=== PATIENT | female | born 1960 | race Caucasian/White ===

== ENCOUNTER → 2016-12-29 | Outpatient (CLI) | payer BC ==
--- NOTE | 2016-12-30 12:13 | RAD ---
DATE: 12/29/16 EXAM: DIGITAL SCREEN BILAT W/CAD HISTORY: Routine screening COMPARISON: 11/07/15 This study was interpreted with the benefit of Computerized Aided Detection (CAD). TECHNIQUE: Routine CC and MLO views of both breasts are obtained. FINDINGS: The breast tissue density is [B ] . Scattered fibroglandular densities are seen bilaterally. There are no dominant suspicious masses, suspicious microcalcifications or evidence of architectural distortion. Stable benign-appearing calcification in the right breast and nodularity in the left breast appear unchanged. Skin and nipples are intact IMPRESSION: Benign findings BI-RADS CATEGORY: 2 BENIGN FINDING(S) RECOMMENDED FOLLOW-UP: 12M 12 MONTH FOLLOW-UP PQRS compliance statement: Patient information was entered into a reminder system with a target due date for the next mammogram. Mammography is a sensitive method for finding small breast cancers, but it does not detect them all and is not a substitute for careful clinical examination. A negative mammogram does not negate a clinically suspicious finding and should not result in delay in biopsying a clinically suspicious abnormality. "Our facility is accredited by the [employer] Mammography [employer]."
== END | disposition home or self-care (01) ==
LOC: MAMMO 17:05
PROVIDERS: ATTEND Family Medicine
DX: Z12.31 Encounter for screening mammogram for malignant neoplasm of breast (principal)
CPT/HCPCS: G0202; 77067

== ENCOUNTER → 2017-02-17 | Outpatient (CLI) | payer BC ==
--- NOTE | 2017-02-17 17:11 | KCIC ---
Examination: Thyroid ultrasound. HISTORY History of followup thyroid nodule, hypothyroidism COMPARISON None available. Findings : The right lobe of thyroid gland measures 2.8 x 0.8 x 1.3 centimeters. The left lobe of thyroid gland measures 3.2 x 1.0 x 1.4 centimeters . In the left lobe of thyroid gland, there is a 7 millimeter nodule containing coarse calcification. In the lower pole of the left lower thyroid gland, there is a 5 millimeter nodule containing tiny calcification. The isthmus measures 1.6 millimeters in AP dimension. IMPRESSION 2 small subcentimeter nodules identified in the left lobe of thyroid gland. Followup examination is recommended to document stability. Electronically signed by: Ollie Rhodes (Feb 17, 2017 17:10:16)
== END | disposition home or self-care (01) ==
LOC: KCIC US 15:36
PROVIDERS: ATTEND Family Medicine
DX: E04.1 Nontoxic single thyroid nodule (principal); E03.9 Hypothyroidism, unspecified
CPT/HCPCS: 76536

== ENCOUNTER → 2017-11-12 | Outpatient (CLI) | payer BC ==
--- NOTE | 2017-11-12 16:24 | KCIC ---
THYROID ULTRASOUND History: Thyroid nodule follow-up, hypothyroidism Comparison: February 17, 2017 Findings: Multiple sonographic images of the thyroid gland are submitted. Right lobe measured 3.5 x 0.7 x 1.5 cm. Left lobe measured 3.8 x 0.8 x 1.5 cm. Isthmus measured 0.1 cm in thickness. There is a complex solid nodule of the superior left gland with associated calcification up to 0.8 x 0.6 x 0.5 cm. There is some associated mild internal vascularity on color Doppler imaging. There is also complex heterogeneous nodule of the inferior left gland up to 0.6 x 0.4 x 0.5 cm. There is some very minimal internal vascularity on color Doppler imaging These have not convincingly changed in size compared with the previous exam. No new thyroid nodularity is identified. Impression: 1. Left thyroid nodules are stable. Superior focus of the left gland is associated with calcification. Electronically signed by: George Freeman MD (11/12/2017 4:20 PM) [facility]-KCIC1
== END | disposition home or self-care (01) ==
LOC: KCIC US 15:43
PROVIDERS: ATTEND Family Medicine
DX: E04.2 Nontoxic multinodular goiter (principal); E03.9 Hypothyroidism, unspecified
CPT/HCPCS: 76536

== ENCOUNTER → 2019-03-25 | Outpatient (CLI) | payer BC ==
--- NOTE | 2019-03-27 09:50 | RAD ---
DATE: 03/25/2019 EXAM: MAMMO IRIS SCREENING BILATERAL HISTORY: Routine screening COMPARISON: 01/25/2018 This study was interpreted with the benefit of Computerized Aided Detection (CAD). Breast Density: SCATTERED The breast parenchyma shows scattered fibroglandular densities. Breast parenchyma level B. FINDINGS: 2-D and 3-D tomosynthesis imaging was performed in CC and MLO projections. No new or enlarging breast densities are seen. Benign calcifications are present. No suspicious microcalcifications have developed. IMPRESSION: There is no mammographic evidence of malignancy in either breast. BI-RADS CATEGORY: 2 BENIGN FINDING(S) RECOMMENDED FOLLOW-UP: 12M 12 MONTH FOLLOW-UP PQRS compliance statement: Patient information was entered into a reminder system with a target due date for the next mammogram. Mammography is a sensitive method for finding small breast cancers, but it does not detect them all and is not a substitute for careful clinical examination. A negative mammogram does not negate a clinically suspicious finding and should not result in delay in biopsying a clinically suspicious abnormality. "Our facility is accredited by the [employer] Mammography [employer]."
== END | disposition home or self-care (01) ==
LOC: MAMMO 09:51
PROVIDERS: ATTEND Family Medicine
DX: Z12.31 Encounter for screening mammogram for malignant neoplasm of breast (principal)
CPT/HCPCS: 77063; 77067

== ENCOUNTER → 2019-05-19 | Day surgery (SDC) | payer BC ==
[~2019-05-19] MED LIST: HYDROmorphone 2 MG/ML VIAL IV PRN; IV RINGERS,LACTATED 1000ML 1,000 ML IV SCH; LEVO50TA5 PO; LIDOCAINE 2% PF 5 ML VIAL. ONE; MORPHINE SULFATE 2 MG/ML VIAL. IV PRN; ONDANSETRON PF 4 MG/2 ML VIAL. IV PRN; PROCHLORPERAZINE 10 MG/2 ML VIAL. IV PRN; PROPOFOL 40 ML IV ONE; fentaNYL PF VIAL 100 MCG/2 ML VIAL IV PRN
--- NOTE | 2019-05-19 09:29 | CONS ---
DATE OF CONSULTATION: 05/19/2019 REFERRING PHYSICIAN: Dr. Angie Christopher. REASON FOR CONSULTATION: Colorectal screening. HISTORY OF PRESENT ILLNESS: A 58-year-old female whose past medical history is significant for hysterectomy and hypothyroidism, seen for screening colon exam. Last exam was 10 years ago, which was unrevealing for polyps or malignancy. Bowel habits are regular without diarrhea or constipation. There has been no melena and/or hematochezia and family history likewise unrevealing for colon cancer, colon polyps, but is positive for diverticulitis with resection was apparent. She denies additional complaints. PAST MEDICAL HISTORY: Hypothyroidism, status post hysterectomy. ALLERGIES: None. MEDICATIONS: Include levothyroxine 50 mcg daily. FAMILY HISTORY AND SOCIAL HISTORY: Significant for high blood pressure with her mother and her grandmother as well as a heart attack with a grandfather. She is a nonsmoker, social drinker. REVIEW OF SYSTEMS: HEENT: There is no decrease in her visual acuity issues. CARDIAC: No history of hypertension, palpitations, syncope. PULMONARY: No shortness breath, productive cough, asthma. RENAL: No dysuria, frequency, hematuria. NEUROLOGIC: No stroke, migraine, neuropathy. PSYCHIATRIC: No mood swings, depression, insomnia. HEMATOLOGIC: No bleeding, bruising, coagulopathy. ENDOCRINE: There is a history of hypothyroidism. MUSCULOSKELETAL: No osteoarthrosis, arthralgias, myalgias. GASTROINTESTINAL: See history present illness. PHYSICAL EXAMINATION: GENERAL: Reveals well-nourished, well-developed female, who is alert and cooperative, in no acute distress. VITAL SIGNS: Temperature is 97.8, pulse 86, respirations 20. HEENT: Normocephalic, atraumatic head. Pupils and extraocular muscles are not tested. Sclerae anicteric. NECK: Supple. LUNGS: Clear. CARDIOVASCULAR: Reveals an S1, S2 without S3, S4 or appreciable murmur. ABDOMEN: Reveals soft abdomen, normal bowel sounds, without appreciable hepatosplenomegaly, with infraumbilical hysterectomy incision. EXTREMITIES: No cyanosis, clubbing, edema. IMPRESSION: Colorectal screening is warranted at this time. Risks and benefits were discussed with the patient including risk of hemorrhage and perforation. She is willing to proceed. I thank Angie Christopher for allowing us to consult and participate in this patient's care. DIANNE MOORE MD DR: HAYLEE/hiram JOB#: [id number] / [id number] ANGIE Lieberman MD
[2019-05-19 09:50] VITALS: BP 136/70
== END ==
LOC: ENDOS 08:02
PROVIDERS: ATTEND Internal Medicine Gastroenterology
DX: Z12.11 Encounter for screening for malignant neoplasm of colon (principal); K64.0 First degree hemorrhoids; E03.9 Hypothyroidism, unspecified; Z79.899 Other long term (current) drug therapy; Z90.710 Acquired absence of both cervix and uterus
CPT/HCPCS: 45378; J2001; J2704

== ENCOUNTER → 2019-08-11 | Outpatient (CLI) | payer BC ==
[2019-05-19 09:50] VITALS: BP 136/70
[~2019-08-11] MED LIST changes: -HYDROmorphone 2 MG/ML VIAL IV PRN; -IV RINGERS,LACTATED 1000ML 1,000 ML IV SCH; -LIDOCAINE 2% PF 5 ML VIAL. ONE; -MORPHINE SULFATE 2 MG/ML VIAL. IV PRN; -ONDANSETRON PF 4 MG/2 ML VIAL. IV PRN; -PROCHLORPERAZINE 10 MG/2 ML VIAL. IV PRN; -PROPOFOL 40 ML IV ONE; -fentaNYL PF VIAL 100 MCG/2 ML VIAL IV PRN
--- NOTE | 2019-08-11 09:56 | CARD ---
MR#: [id number] Date of Study: 08/11/2019 Ordering Physician: BEKAH CHAU, Referring Physician: BEKAH CHAU Tech: Sharon Newton RDCS APPROVED REPORT EXAM: Two-dimensional and M-mode echocardiogram with Doppler and color Doppler. Other Information Quality : GoodHR: 76bpm Rhythm : NSR INDICATION Atrial Fibrillation 2D DIMENSIONS RVDd2.4 (2.9-3.5cm)Left Atrium(2D)2.8 (1.6-4.0cm) IVSd1.0 (0.7-1.1cm)Aortic Root(2D)2.9 (2.0-3.7cm) LVDd3.8 (3.9-5.9cm)LVOT Diameter1.8 (1.8-2.4cm) PWd1.0 (0.7-1.1cm)LVDs2.8 (2.5-4.0cm) FS (%) 28.1 %SV35.1 ml LVEF(%)55.1 (>50%) Aortic Valve AoV Peak Connor.150.8cm/sAoV VTI31.6cm AO Peak GR.9.1mmHgLVOT Peak Connor.134.6cm/s AO Mean GR.5mmHgAVA (VMAX)2.28cm2 MADDI (VTI)2.30cm2 Mitral Valve MV E Jcyrzkau479.8cm/sMV DECEL ILNS816vl MV A Lvnlzkcr10.6cm/sE/A Ratio1.4 Pulmonary Valve PV Peak Gyxhykaa458.5cm/s LEFT VENTRICLE The left ventricle is normal size. There is normal left ventricular wall thickness. The left ventricu lar systolic function is normal. The Ejection Fraction is 55-60%. There is normal LV segmental wall m otion. The left ventricular diastolic function and filling is normal for age. RIGHT VENTRICLE The right ventricle is normal size. There is normal right ventricular wall thickness. The right ventr icular systolic function is normal. ATRIA The left atrium size is normal. The right atrium size is normal. The interatrial septum is intact wit h no evidence for an atrial septal defect or patent foramen ovale as noted on 2-D or Doppler imaging. AORTIC VALVE The aortic valve is normal in structure and function. The aortic valve is trileaflet. Doppler and Col or Flow revealed no significant aortic regurgitation. There is no significant aortic valvular stenosi s. MITRAL VALVE The mitral valve is normal in structure and function. There is no evidence of mitral valve prolapse. There is no mitral valve stenosis. Doppler and Color Flow revealed no mitral valve regurgitation note d. TRICUSPID VALVE The tricuspid valve is normal in structure and function. Doppler and Color Flow revealed no tricuspid valve regurgitation noted. There is no tricuspid valve prolapse or vegetation. There is no tricuspid valve stenosis. PULMONIC VALVE The pulmonary valve is normal in structure and function. Doppler and Color Flow revealed no pulmonic valvular regurgitation. There is no pulmonic valvular stenosis. GREAT VESSELS The aortic root is normal in size. The ascending aorta is normal in size. The IVC was not visualized. PERICARDIAL EFFUSION There is no evidence of significant pericardial effusion. Critical Notification Critical Value: No <Conclusion> The left ventricular systolic function is normal. The Ejection Fraction is 55-60%. There is normal LV segmental wall motion. There is no evidence of significant pericardial effusion. Signed by : Bekah Chau, Electronically Approved : 08/11/2019 09:55:46
--- NOTE | 2019-08-11 14:04 | RAD ---
MR#: [id number] Date of Study: 08/11/2019 Ordering Physician: BEKAH HUDSON Referring Physician: AAMIR RENE Tech: RT Neal (Elle) (N) APPROVED REPORT Test Type: Exercise Stress Nurse/Tech: Yung FROST Test Indications: CP, Abnormal EKG Cardiac History: None, See EMR Medications: ASA 81mg daily, See EMR Medical History: See EMR Resting ECG: SR Resting Heart Rate: 83 bpm Resting Blood Pressure: 151/62mmHg Pretest Chest Pain: No chest pain Nurse/Tech Notes Lungs CTA, Heart tones regular. Consent: The procedure was explained to the patient in lay terms. Informed consent was witnessed. Jae eout was entered into [employer]. History and Stress Test performed by RT Vik (Elle) (N) Stress Symptoms No chest pain or symptoms. POST EXERCISE Reason for Termination: Reached target heart rate Target HR: Yes Max HR: 143 bpm 89% of Maximum Predicted HR: 160 bpm Exercise duration: 8:00 min:sec, 3 Stage Exercise capacity: 10.0METs Max Blood Pressure: 170/78mmHg Blood Pressure response to exercise: Normal blood pressure response during stress. Heart Rate response to exercise: WNL Chest Pain: No. Arrhythmia: No. ST Change: No. INTERPRETATION Stress EKG Conclusion: The resting EKG shows a sinus rhythm with minimal nonspecific ST segment maguire es. The stress EKG shows no significant changes from baseline. No EKG evidence of stressed induced ischemia. Imaging Protocol IMAGE PROTOCOL: Rest Tc-99m/stress Tc-99m 1 day Rest: Stress: Viability: Radiopharm.Tc99m CkgwcodwvNz18n Sestamibi Zenf67jTy 31.6mCi Duration 15min. 15min. Img Date 08/11/2019 08/11/2019 Inj-Img Drrb09pch. 60min. Rest Admin Site:IV - Left AntecubitalAdministrator:RT Neal (R)(N) Stress Admin Site: IV - Left AntecubitalAdministrator: RT Krysta Chery)(N) STRESS DATA End Diast. Vol.45.0mlLVEDV index BSA26.0ml End Syst. Vol.2.0mlLVESV index BSA1.0ml Myocardial Mass82.0gEject. Ahoqvcaa09.0% Stress Scores Regional WT0.00Summed WT0.00 Regional WM0.00Summed WM0.00 LV Perfusion The stress scans show no significant defects. The rest scans show no significant defects. Nuclear imaging shows no reversible ischemia or infarct. Wall Motion Left ventricular systolic function is normal with no regional wall motion abnormalities and an ejecti on fraction of greater than 70%. LV Perf. Quant 17 Seg. SSS0.00 17 Seg. SRS0.00 17 Seg. SDS0.00 Stress Defect Extent (% LAD)0.00Rest Defect Extent (% LAD)0.00Rev. Defect Extent (% LAD)0.00 Stress Defect Extent (% LCX) 0.00Rest Defect Extent (% LCX)0.00Rev. Defect Extent (% LCX)0.00 Stress Defect Extent (% RCA)0.00Rest Defect Extent (% RCA)0.00Rev. Defect Extent (% RCA)0.00 Stress Defect Extent (% MAAME)0.00Rest Defect Extent (% MAAME)0.00Rev. Defect Extent (% MAAME)0.00 Conclusion 1. Good exercise tolerance. 2. No chest pain with exertion. 3. No EKG evidence of stress-induced ischemia. 4. Nuclear imaging shows no reversible ischemia or infarct. 5. Normal left ventricular systolic function with an ejection fraction of greater than 70%. 6. Low risk treadmill nuclear stress test. Signed by : Boy Caballero MD Electronically Approved : 08/11/2019 14:04:25
== END | disposition home or self-care (01) ==
LOC: ECHO 08:50
PROVIDERS: ATTEND Internal Medicine Cardiovascular Disease
DX: R07.9 Chest pain, unspecified (principal); R94.39 Abnormal result of other cardiovascular function study; I48.91 Unspecified atrial fibrillation
CPT/HCPCS: 78452; 93017; 93306; A9500

== ENCOUNTER → 2020-05-08 | Outpatient (CLI) | payer BC ==
[2019-05-19 09:50] VITALS: BP 136/70
--- NOTE | 2020-05-08 18:41 | KCIC ---
Bilateral digital screening mammograms with 3-D tomosynthesis: Reason for examination: Routine screening. Comparison is made to previous studies dated back to 11/07/2015. Bilateral mammograms in CC and oblique projections were obtained with 2-D imaging and 3-D tomosynthesis imaging on a Siemens Inspiration unit and reviewed on the workstation. Interpretation was made with the benefit of CAD. The skin and nipples show no abnormalities. No abnormal axillary lymph nodes are seen. The breast parenchyma shows scattered fatty and fibroglandular density. (Breast density: Category B.) There are small nodular parenchymal density seen centrally in the left breast which are stable. There are no new dominant masses, suspicious calcifications or architectural distortion. A few benign calcifications are seen. Impression: No evidence of malignancy. Recommend routine screening. BI-RAD Category 2: Benign. "Our facility is accredited by the [employer]ammography [employer]." This patient's information has been entered into a reminder system for the patient to be notified with the results of her examination and a target date for the next mammogram. Electronically signed by: Misa Baird MD (05/08/2020 6:38 PM) [id number]
== END ==
LOC: KCIC MAMMO 10:29
PROVIDERS: ATTEND Family Medicine
DX: Z12.31 Encounter for screening mammogram for malignant neoplasm of breast (principal)
CPT/HCPCS: 77063; 77067

== ENCOUNTER → 2020-08-20 | Outpatient (CLI) | payer BC ==
[2019-05-19 09:50] VITALS: BP 136/70
--- NOTE | 2020-08-20 16:17 | KCIC ---
Thyroid ultrasound compared to similar exam dated November 122016 for thyroid nodules. TECHNIQUE AND FINDINGS: Real-time grayscale and color Doppler evaluation of the thyroid gland is performed. Gland echotexture is heterogeneous diffusely. There is normal color flow throughout the gland. The right lobe measures 4.7 x 1.2 x 1.1 cm and the left measures 4.0 x 1.4 x 1.1 cm. The isthmus measures 1.6 mm in thickness. In the superior portion of the left thyroid lobe there is a circumscribed hypoechoic nodule measuring 0.7 x 0.5 x 0.6 cm, with coarse central calcification. Nodules wider than it is tall. At the inferior pole is a second hypoechoic nodule measuring 0.5 x 0.2 x 0.4 cm. This nodule also contains coarse internal calcifications, and is wider than tall. Margins are ill-defined. No suspicious adenopathy is seen. IMPRESSION: 1. Stable appearance of the thyroid gland with 2 unchanged subcentimeter nodules on the left. Electronically signed by: Endy Jhaveri MD (08/20/2020 4:14 PM) [id number]
== END | disposition home or self-care (01) ==
LOC: KCIC US 08:36
PROVIDERS: ATTEND Family Medicine
DX: E04.1 Nontoxic single thyroid nodule (principal); E03.9 Hypothyroidism, unspecified
CPT/HCPCS: 76536

== ENCOUNTER → 2020-08-23 | Outpatient (CLI) | payer BC ==
[2019-05-19 09:50] VITALS: BP 136/70
[~2020-08-23] MED LIST changes: +ASPI-630 PO; +CETI10TA74 PO; +FAMO20TA5 PO; +HYDR-3164 PO; +LYSI500T8 PO
== END | disposition home or self-care (01) ==
LOC: LAB 14:12
PROVIDERS: ATTEND Surgery
DX: Z01.812 Encounter for preprocedural laboratory examination (principal); L72.9 Follicular cyst of the skin and subcutaneous tissue, unspecified; Z20.828 Contact with and (suspected) exposure to other viral communicable diseases
CPT/HCPCS: U0003-CS

== ENCOUNTER 2020-08-26 09:14 | Day surgery (SDC) | payer BC ==
[~2020-08-26] VITALS: Ht 168.9 cm; Wt 70.5 kg
[~2020-08-26 09:14] MED LIST changes: -HYDR-3164 PO; +HYDROmorphone 2 MG/ML VIAL IV PRN; +IV RINGERS,LACTATED 1000ML 1,000 ML IV SCH; +LIDOCAINE 1% PF 2 ML VIAL. ID PRN; +LIDOCAINE 1%/EPI 1:100,000 20 ML VIAL. ONE; +MORPHINE SULFATE 2 MG/ML VIAL. IV PRN; +ONDANSETRON PF 4 MG/2 ML VIAL. IV PRN; +PROCHLORPERAZINE 10 MG/2 ML VIAL. IV PRN; +fentaNYL PF VIAL 100 MCG/2 ML VIAL IV PRN
[2020-08-26] MEDS ORDERED: fentaNYL PF VIAL 100 MCG/2 ML VIAL ONE (09:58)
[2020-08-26] MEDS ORDERED: MIDAZOLAM HCL/PF 2 MG/2 ML VIAL. ONE (09:58)
[2020-08-26] MEDS ORDERED: LIDOCAINE 2% PF 5 ML VIAL. ONE (10:22)
[2020-08-26] MEDS ORDERED: ROCURONIUM 50 MG/5 ML VIAL. ONE (10:22)
[2020-08-26] MEDS ORDERED: PROPOFOL 10 MG/ML (20ML) VIAL. IV ONE (10:22)
[2020-08-26] MEDS ORDERED: DEXAMETHASONE SOD PHOS 4 MG/ML VIAL ONE (10:49)
[2020-08-26] MEDS ORDERED: ONDANSETRON PF 4 MG/2 ML VIAL. ONE (10:49)
[2020-08-26] MEDS ORDERED: GLYCOPYRROLATE 1 MG/5 ML VIAL. ONE (11:48)
[2020-08-26] MEDS ORDERED: NEOSTIGMINE 10 MG/10 ML VIAL. ONE (11:48)
[2020-08-26] MEDS ORDERED: NEOMY/BACITR/POLYMYXIN OINT PACKET. TP ONE (11:50)
[2020-08-26] MEDS ORDERED: SEVOFLURANE 61 TO 120 MINUTES. IH ONE (11:51)
--- NOTE | 2020-08-26 12:04 | DISCH ---
DISCHARGE INSTRUCTIONS Condition on Discharge Condition on Discharge: Stable Activity After Discharge Activity Instructions for Disc: Resume previous activity Diet after Discharge Diet after Discharge: Regular Wound Incision Care Wound/Incision Care: Other, see below (may resume showering in 72 hours) Follow-Up Follow up with: Dr Beltran in 2 weeks, call for appt [phone] DIANNE BELTRAN MD Aug 26, 2020 12:04
--- NOTE | 2020-08-26 12:09 | PDOC4 ---
Operative Note Operative Note Operative Note: Preoperative Diagnosis: Multiple scalp cysts Postoperative Diagnosis: Multiple scalp cysts, scalp skin lesion Procedure: Excision of multiple scalp cysts, scalp skin lesion Surgeon: Rom Volcanologist: Ramonita LUJAN Anesthesia: General EBL: 40 mL Specimen: Scalp cyst x7, largest 2 x 2 cm, excision of scalp skin lesion 1 x 1 cm Drains: None Complications: None Indication: The patient is a 60-year-old female who presented with multiple scalp cysts consistent with pilar cysts. They are very bothersome and several have enlarged. She requests excision of all of the cysts. Risks of surgery were discussed which include bleeding, infection, recurrence, anesthetic risk, pain, potential need for additional surgery procedure. She understands and would like to proceed. Description: The patient was taken the operating room and placed supine in the operating table. General anesthesia was performed. She was then laid prone. The cysts were located on both sides favoring the posterior region. Trimming and shaving of the hair were performed overlying each of the cysts. The skin was then prepped with Betadine and draped in a standard surgical manner. A similar technique was used for excision of all of the cysts. An incision was made overlying each cyst. A combination of sharp and blunt dissection was used to mobilize the cyst and its sac from the surrounding tissues. The cysts were then readily excised and sent as specimens. The largest was located on the right parieto-occipital region and measured 2 x 2 cm. Bleeding was brisk from each incision site but was readily controlled with cautery. One area proved to be a skin lesion as opposed to a cyst. This was excised with a small elliptical incision. The lesion measured 1 x 1 cm and was sent to pathology. Each of the incisions was then approximated with 4-0 Monocryl. In total 7 cysts and one scalp skin lesion were excised. The patient tolerated the procedure well and sent to the recovery room in stable condition. At the end of the case all counts were correct. DIANNE BELTRAN MD Aug 26, 2020 12:09
[2020-08-26] MEDS ORDERED: HYDROcodone/APAP 5/325MG 1 TAB TABLET PO ONE (12:15)
[2020-08-26] MEDS ORDERED: HYDR-3164 PO (12:20)
[2020-08-26 12:45] VITALS: BP 111/73
--- NOTE | 2020-08-27 16:06 | PATHOLOGY ---
[facility] Accession Number: [id number] . 01 Material submitted: . PART A: scalp - LEFT SCALP SKIN LESION. Modifiers: left PART B: scalp - SCALP CYSTS . 01 Clinical history: . EXCISION OF SCALP CYSTS . 02 Diagnosis: A. Skin and subcutaneous tissue, left scalp lesion excision: - Intradermal melanocytic nevus, excised. . B. Scalp cysts, excision: - Pilar cysts. . ([facility]; 08/27/2020) [facility] 08/27/2020 1410 Local . 02 Comment: There is no evidence of malignancy. . ([facility]:mm; 08/27/2020) . 02 Electronically signed: . Kirill Sandoval MD, Pathologist NPI- [id number] . 01 Gross description: . A. The specimen is received in formalin, labeled "Franco, Alexandra, left scalp" and consists of an elliptical segment of skin measuring 1.1 x 0.7 x 0.6 cm. Present on the surface is a raised pink lesion measuring 0.6 x 0.6 cm. The margin is inked black. It is serially sectioned and entirely submitted in A1. . B. The specimen is received in formalin, labeled "Franco, Alexandra, scalp cysts" and consists of multiple firm, intact to disrupted cysts measuring between 1.0 x 0.8 x 0.5 cm and 2.1 x 1.5 x 1.1 cm. The cysts contain solid to soft amorphous diaz material and public utilities sales representative sections are submitted in B1. ([facility]; 08/26/2020) SYU/SYU 08/27/2020 1408 Local . 02 Pathologist provided ICD-10: D22.4, L72.11 . 02 CPT . 671708, 431691 Specimen Comment: A courtesy copy of this report has been sent to [phone], [phone] Specimen Comment: [id number] Specimen Comment: Report sent to / DR GALVAN Performed at: 01 [facility] [address], [place] [id number] MD Jay Montana MD Phone: [phone] Performed at: 02 [facility] [address], [place] [id number] MD Kirill Sandoval MD Phone: [phone]
== END 2020-08-26 13:20 | disposition home or self-care (01) ==
LOC: SURG 09:14
PROVIDERS: ATTEND Surgery
DX: L72.11 Pilar cyst (principal); L72.9 Follicular cyst of the skin and subcutaneous tissue, unspecified; E03.9 Hypothyroidism, unspecified; L98.8 Other specified disorders of the skin and subcutaneous tissue; Z79.899 Other long term (current) drug therapy; Z98.890 Other specified postprocedural states; Z83.3 Family history of diabetes mellitus; Z82.49 Family history of ischemic heart disease and other diseases of the circulatory system
CPT/HCPCS: 11421; 11422; 88304; 88305; A7015; J0690; J1100; J2250; J2405; J2704; J2710; J3010; J3490; A4461

== ENCOUNTER → 2021-06-26 | Outpatient (CLI) | payer BC ==
[~2021-06-26] MED LIST changes: +HYDR-3164 PO; -HYDROmorphone 2 MG/ML VIAL IV PRN; -IV RINGERS,LACTATED 1000ML 1,000 ML IV SCH; -LIDOCAINE 1% PF 2 ML VIAL. ID PRN; -LIDOCAINE 1%/EPI 1:100,000 20 ML VIAL. ONE; -MORPHINE SULFATE 2 MG/ML VIAL. IV PRN; -ONDANSETRON PF 4 MG/2 ML VIAL. IV PRN; -PROCHLORPERAZINE 10 MG/2 ML VIAL. IV PRN; -fentaNYL PF VIAL 100 MCG/2 ML VIAL IV PRN
--- NOTE | 2021-06-26 13:40 | KCIC ---
EXAM: Bilateral digital screening mammogram with tomosynthesis. HISTORY: 61 year-old presents for screening mammography. TECHNIQUE: Full-field digital craniocaudal and mediolateral oblique 2D and 3D tomosynthesis images of both breasts are obtained for evaluation. Computer aided detection was applied. COMPARISON: 05/08/2020 and 03/25/2019 BREAST PARENCHYMAL DENSITY: Level B - Scattered fibroglandular densities. FINDINGS: There is no new suspicious mass, microcalcification or region of architectural distortion. There is stable benign nodularity and asymmetry within the left greater right breast. IMPRESSION: BI-RADS Category 2: Benign finding(s). RECOMMENDATION: Annual mammography is recommended. If your mammogram demonstrates that you have dense breast tissue, which could hide abnormalities, and if you have other risk factors for breast cancer that have been identified, you might benefit from s upplemental screening tests that may be suggested by your ordering physician. Dense breast tissue, i n and of itself, is a relatively common condition. This information is not provided to cause undue c oncern, but rather to raise your awareness and to promote discussion with your physician regarding th e presence of other risk factors, in addition to dense breast tissue. A report of your mammography re sults will be sent to you and your physician. You should contact your physician if you have any ques tions or concerns regarding this report. Mammography is a sensitive method for finding small breast cancers, but it does not detect them all a nd is not a substitute for careful clinical examination. A negative mammogram does not negate a clin ically suspicious finding and should not result in delay in biopsying a clinically suspicious abnorma lity. PQRS compliance statement - Patient information was entered into a reminder system with a target due date for the next mammogram. "Our facility is accredited by the [employer] Mammography Program." Electronically signed by: Lawanda Eugene MD (06/26/2021 1:37 PM) [email or web address]
== END ==
LOC: KCIC MAMMO 12:46
PROVIDERS: ATTEND Family Medicine
DX: Z12.31 Encounter for screening mammogram for malignant neoplasm of breast (principal)
CPT/HCPCS: 77063; 77067

== ENCOUNTER → 2021-09-10 | Outpatient (CLI) | payer BC ==
--- NOTE | 2021-09-10 17:01 | CARD ---
MR#: [id number] Date of Study: 09/10/2021 Ordering Physician: BEKAH CHAU, Referring Physician: BEKAH CHAU, Tech: Candice Gamble [facility] APPROVED REPORT EXAM: Two-dimensional and M-mode echocardiogram with Doppler and color Doppler. Other Information Quality : AverageHR: 70bpm INDICATION Chest Pain 2D DIMENSIONS RVDd2.5 (2.9-3.5cm)Left Atrium(2D)2.8 (1.6-4.0cm) IVSd0.8 (0.7-1.1cm)Aortic Root(2D)2.7 (2.0-3.7cm) LVDd4.2 (3.9-5.9cm)LVOT Diameter2.0 (1.8-2.4cm) PWd1.0 (0.7-1.1cm)LVDs3.0 (2.5-4.0cm) FS (%) 29.8 %SV45.4 ml LVEF(%)57.3 (>50%) Aortic Valve AoV Peak Connor.152.4cm/sAoV VTI34.9cm AO Peak GR.9.3mmHgLVOT Peak Connor.135.4cm/s LVOT VTI 30.38cmAO Mean GR.5mmHg MADDI (VMAX)2.52vp4JTG (VTI)2.77cm2 Mitral Valve MV E Xaxbmhhn000.8cm/sMV DECEL [id number] MV A Siardvpt06.4cm/sMV E Mean Gr.2mmHg MV [id number]/A Ratio1.6 MVA (PHT)4.88cm2 TDI E/Lateral E'10.1E/Medial E'11.0 Pulmonary Valve PV Peak Agbfbtvw081.3cm/sPV Peak Grad.4mmHg Tricuspid Valve TR P. Bkfotgkl365cd/sRAP [id number] TR Peak Gr.52nlVbPZMM59uqUg Pulmonary Vein S1 Tzvjwsue72.8cm/sD2 Nudspnbr40.4cm/s PVa [id number] LEFT VENTRICLE The left ventricle is normal size. There is normal left ventricular wall thickness. The left ventricu lar systolic function is normal. The Ejection Fraction is 60%. There is normal LV segmental wall sarah on. The left ventricular diastolic function and filling is normal for age. RIGHT VENTRICLE The right ventricle is normal size. There is normal right ventricular wall thickness. The right ventr icular systolic function is normal. ATRIA The left atrium size is normal. The right atrium size is normal. The interatrial septum is intact wit h no evidence for an atrial septal defect or patent foramen ovale as noted on 2-D or Doppler imaging. AORTIC VALVE The aortic valve is normal in structure and function. Doppler and Color Flow revealed no significant aortic regurgitation. There is no significant aortic valvular stenosis. Calculated aortic valve area is 2.94 cm2 with maximum pressure gradient of 10 mmHg and mean pressure gradient of 6 mmHg. MITRAL VALVE The mitral valve is normal in structure and function. There is no evidence of mitral valve prolapse. There is no mitral valve stenosis. Doppler and Color Flow revealed no mitral valve regurgitation note d. TRICUSPID VALVE The tricuspid valve is normal in structure and function. Doppler and Color Flow revealed trace tricus pid regurgitation. There is no tricuspid valve stenosis. PULMONIC VALVE The pulmonic valve is not well visualized. Doppler and Color Flow revealed no pulmonic valvular regur gitation. GREAT VESSELS The aortic root is normal in size. The IVC is normal in size and collapses >50% with inspiration. PERICARDIAL EFFUSION There is no evidence of significant pericardial effusion. Critical Notification Critical Value: No <Conclusion> The left ventricular systolic function is normal. The Ejection Fraction is 60%. There is normal LV segmental wall motion. Trace tricuspid regurgitation. There is no evidence of significant pericardial effusion. Signed by : Bekah Chau, Electronically Approved : 09/10/2021 17:01:05
== END ==
LOC: ECHO 14:52
PROVIDERS: ATTEND Internal Medicine Cardiovascular Disease
DX: R07.9 Chest pain, unspecified (principal)
CPT/HCPCS: 93306